=== PATIENT | male | born 1990 | race African-American/Black ===

== ENCOUNTER 2016-08-19 01:43 | Day surgery (SDC) | payer OTHER ==
[~2016-08-19] VITALS: Ht 170.2 cm; Wt 81.0 kg
[2016-08-19] MEDS ORDERED: KETOROLAC 60MG/2ML VIAL IM ONE (03:00)
[2016-08-19] MEDS ORDERED: SODIUM CHLORIDE 0.9% 1,000 ML IV ONE (04:19)
[2016-08-19] MEDS ORDERED: ONDANSETRON HCL 4MG/2ML VIAL IV STA (04:19)
[2016-08-19 04:21] LABS: BASOPHILS % 0.2 % (0.0-2.0); EOSINOPHILS % 0.3 % (0.0-5.0); HEMATOCRIT. 38.5 % (42.0-52.0); HEMOGLOBIN. 13.3 g/dL (14.0-18.0); LYMPHOCYTES % 9.9 % (20.0-50.0); MEAN CORPUSCULAR HEMOGLOBIN 30.5 pg (28.0-32.0); MEAN PLATELET VOLUME 8.5 fl (7.4-10.4); MONOCYTES % 9.1 % (2.0-8.0); NEUTROPHILS % 80.5 % (40.0-76.0); PLATELET 189 x1000/uL (130-400); RED BLOOD CELL COUNT 4.38 mill/uL (4.7-6.1); RED CELL DISTRIBUTION WIDTH 13.2 % (11.6-14.6)
[2016-08-19 04:30] LABS: INR 1.2; PROTHROMBIN TIME 12.7 sec
[2016-08-19] MEDS ORDERED: MORPHINE SULFATE 4 MG/ML CPJ (NOT FOR IM USE) IV ONE ×2 (04:30→07:30)
[2016-08-19 04:32] LABS: CARBON DIOXIDE 27 mEq/L (21-32); CHLORIDE 101 mEq/L (98-107)
[2016-08-19] MEDS ORDERED: LEVOFLOXACIN 750MG PREMIX 150 ML IV ONE (07:45)
[2016-08-19] MEDS ORDERED: HYDROCODONE/ACETAMINOPHEN 10/325MG TABLET PO ONE (09:00)
[2016-08-19 09:30] VITALS: BP 101/71
[2016-08-19] MEDS ORDERED: MIDAZOLAM HCL 2 MG/2 ML VIAL ONE (11:25)
[2016-08-19] MEDS ORDERED: FENTANYL CITRATE/PF 50MCG/ML 2ML VIAL ONE (11:25)
[2016-08-19] MEDS ORDERED: BUPIVACAINE HCL 0.5% (5MG/ML) 50ML ONE (11:28)
[2016-08-19] MEDS ORDERED: HYDROMORPHONE HCL/PF 2MG/ML CPJ IV PRN (11:45)
[2016-08-19] MEDS ORDERED: LABETALOL HCL 20MG/4ML CARPUJECT IV PRN (11:45)
[2016-08-19] MEDS ORDERED: MEPERIDINE HCL/PF 25MG/ML CPJ IV PRN (11:45)
[2016-08-19] MEDS ORDERED: ONDANSETRON HCL 4MG/2ML VIAL IV PRN (11:45)
[2016-08-19] MEDS ORDERED: BUPIVACAINE HCL/PF 0.5% (5MG/ML) 10ML ONE (11:50)
[2016-08-19] MEDS ORDERED: HYDROMORPHONE HCL/PF 2MG/ML (OR) ONE (11:58)
[2016-08-19] MEDS ORDERED: IOHEXOL-300 100 ML BOTTLE ONE (13:44)
[2016-08-19] MEDS ORDERED: SODIUM CHLORIDE 0.9% 10ML VIAL ONE ×2 (13:44→15:29)
[2016-08-19] MEDS ORDERED: VECURONIUM BROMIDE 10 MG/VIAL IV ONE (15:29)
[2016-08-19] MEDS ORDERED: PROPOFOL 200MG/20ML VIAL IV ONE (15:29)
== END 2016-08-19 14:00 | disposition home or self-care (01) ==
LOC: EDSEX 01:55 → ER 01:55 → UNDOADMIN 11:12 → OR 11:12 → ORIP 11:12 → OR 14:00
PROVIDERS: ATTEND Internal Medicine
DX: K61.1 Rectal abscess (principal); R16.2 Hepatomegaly with splenomegaly, not elsewhere classified
CPT/HCPCS: 10060; 36415; 74177; 80048; 81025; 85025; 85610; 96365; 96372; 96375; 96376; 99285; A4216; J1170; J1885; J1956; J2250; J2270; J2405; J3010; J3490; J7030; Q9967; J2704

== ENCOUNTER 2016-08-20 00:25 | Emergency (ER) | payer OTHER ==
[~2016-08-20] VITALS: Ht 170.2 cm; Wt 62.0 kg
[2016-08-20 03:00] VITALS: BP 123/76
== END 2016-08-20 06:41 | disposition home or self-care (01) ==
LOC: ER 00:25
DX: K61.0 Anal abscess (principal); F17.200 Nicotine dependence, unspecified, uncomplicated; Z88.1 Allergy status to other antibiotic agents
CPT/HCPCS: 99283

== ENCOUNTER 2016-10-23 18:27 | Emergency (ER) | payer OTHER ==
[~2016-10-23] VITALS: Ht 170.2 cm; Wt 61.5 kg
[2016-10-23 23:00] VITALS: BP 123/79
== END 2016-10-23 23:48 | disposition home or self-care (01) ==
LOC: ER 23:37
DX: Z48.01 Encounter for change or removal of surgical wound dressing (principal)
CPT/HCPCS: 99283

== ENCOUNTER 2017-05-29 01:57 | Emergency (ER) | payer OTHER ==
[~2017-05-29] VITALS: Ht 170.2 cm; Wt 61.3 kg
[2017-05-29] MEDS ORDERED: LIDOCAINE HCL/EPINEPHRINE 1%-EPI 1:100,000 20 ML VIAL INFIL ONE (06:45)
[2017-05-29] MEDS ORDERED: HYDROCODONE/ACETAMINOPHEN 5/325MG TABLET PO ONE (06:45)
[2017-05-29 08:00] VITALS: BP 112/64
== END 2017-05-29 08:07 | disposition home or self-care (01) ==
LOC: ER 01:57
DX: L02.214 Cutaneous abscess of groin (principal); Z88.0 Allergy status to penicillin
CPT/HCPCS: 10060; 87070; 87205; 99284; J3490; X7700; Z7610

== ENCOUNTER 2017-05-29 16:36 | Emergency (ER) | payer OTHER ==
[~2017-05-29] VITALS: Ht 170.2 cm; Wt 93.0 kg
[2017-05-29] MEDS ORDERED: LIDOCAINE HCL 4% CREAM 76GM TUBE TP ONE (20:00)
[2017-05-29] MEDS ORDERED: IBUPROFEN 800MG TABLET PO ONE (21:45)
[2017-05-29 21:50] VITALS: BP 122/82
== END 2017-05-29 21:55 | disposition home or self-care (01) ==
LOC: ER 18:30
DX: L02.214 Cutaneous abscess of groin (principal); Z88.0 Allergy status to penicillin
CPT/HCPCS: 99282; 99283